=== PATIENT | male | born 1945 | race Caucasian/White ===

== ENCOUNTER 2023-05-15 15:36 | Emergency (ER) | payer OTHER, SELFPAY ==
[2023-05-15] VITALS (15 sets, daily range): BP systolic 174–219; BP diastolic 88–149; PULSE 58–124; RESP 12–28; TEMP 36.4–36.5; O2SAT 96–99; BMI 30.1
--- NOTE | 2023-05-15 16:12 | DI.RAD.S_ITS ---
PROCEDURE: XR CHEST 1V INDICATIONS: suspected sepsis TECHNIQUE: One view of the chest was acquired. COMPARISON: None. FINDINGS: Surgical changes and devices: None. Lungs and pleura: No consolidation. 1.3 cm nodularity projecting over the left middle lung zone. No pleural effusions or pneumothorax. Mediastinum: Mediastinal contours appear normal. Heart size is normal. Bones and chest wall: No suspicious bony lesions. Overlying soft tissues appear unremarkable. IMPRESSION: No acute cardiopulmonary process. 1.3 cm nodularity projecting over the left middle lung zone. Recommend nonurgent confirmation with CT to exclude malignancy. Dictated by: Delano Langston M.D. on 05/15/2023 at 16:53 Approved by: Delano Langston M.D. on 05/15/2023 at 16:53
--- NOTE | 2023-05-15 16:19 | ED.ABDPAIN ---
HPI - Abdominal Pain General Chief Complaint: Fever Stated Complaint: Poss heart troubles??? Time Seen by Provider: 05/15/23 16:18 Source: patient and family Mode of arrival: Wheelchair Related Data Allergies Allergy/AdvReac Type Severity Reaction Status Date / Time No Known Drug Allergies Allergy Verified 05/15/23 16:17 Patient History Social History Smoking Status: Never smoker Smoking Status: Never smoker alcohol intake frequency: other Substance Use Type: marijuana Exam Initial Vital Signs Initial Vital Signs: Vital Signs Temperature 97.5 F L 05/15/23 16:14 Pulse Rate 58 L 05/15/23 16:14 Respiratory Rate 17 05/15/23 16:14 Blood Pressure 214/99 H 05/15/23 16:14 Pulse Oximetry 99 05/15/23 16:14 Oxygen Delivery Method Room Air 05/15/23 16:14 Course Orders Ordered: ED Orders 05/15/23 16:12 XR chest 1V Stat Blood Culture Stat Complete Blood Count AUTO DIFF Stat Comprehensive Metabolic Panel Stat Lactate (Lactic Acid) Stat Lipase Stat PTT Partial Thromboplastin Haroldo Stat Procalcitonin Stat Prothrombin Time INR Stat EKG-12 Lead Stat RT Consult Eval and Treat NOW 05/15/23 16:13 Lipase Stat Respiratory Panel (Film Array) Stat Sodium Chloride (Normal Saline 0.9%) 1,000 mls @ 1,000 mls/hr IV BOLUS ONE Stop: 05/15/23 17:11 Ondansetron HCl (Ondansetron 4 Mg/2 Ml Inj) 4 mg IV NOW PRN PRN Reason: Nausea And Vomiting Ondansetron HCl (Ondansetron 4 Mg Odt) 4 mg SL NOW PRN PRN Reason: Nausea And Vomiting Vital Signs Vital signs: Vital Signs - 8 hr 05/15/23 16:14 Temperature 97.5 F L Pulse Rate 58 L Respiratory Rate 17 Blood Pressure 214/99 H Pulse Oximetry 99 Oxygen Delivery Method Room Air
[2023-05-15] MEDS: ONDANSETRON 4 MG/2 ML INJ IV (17:20)
[2023-05-15] MEDS: SODIUM CHLORIDE 0.9% 1,000 ML 1000 ML IV (17:20)
[2023-05-15 18:23] LABS: Add Manual Diff / Slide Review NO; Basophils Absolute Auto 0 /uL (0-100); Basophils Percent Auto 0.4 % (0-2); Eosinophils Absolute Auto 0 /uL (0-450); Eosinophils Percent Auto 0.2 % (2-4); Hematocrit 45.1 % (41-53); Hemoglobin 15.5 g/dL (13.5-17.5); Lymphocytes Absolute Auto 500 /uL (1100-4500); Lymphocytes Percent Auto 10.5 % (25-40); Mean Corpuscular HGB Conc 34.4 % (30-36); Mean Corpuscular Hemoglobin 31.6 PG (26-34); Mean Corpuscular Volume 91.8 fL (80-100); Monocytes Absolute Auto 300 /uL (0-900); Monocytes Percent Auto 6.1 % (3-14); Neutrophils Absolute Auto 4000 /uL (1500-7000); Neutrophils Percent Auto 82.8 % (50-75); Platelet Count 251 X10^3/uL (150-400); Red Blood Cell Count 4.91 X10^6/uL (4.5-5.9); Red Cell Distribution Width 14.1 % (11.6-14.8); White Blood Cell Count 4.8 X10^3/uL (4.5-11.0)
[2023-05-15 18:26] LABS: Prothrombin Time 11.9 SECONDS (10.1-12.7)
[2023-05-15 18:28] LABS: PTT Partial Thromboplastin Tim 32 SECONDS (26-36)
[2023-05-15 18:33] LABS: Lactate (Lactic Acid) 1.4 mmol/L (0.7-2.1)
[2023-05-15 18:34] LABS: Albumin 4.4 g/dL (3.5-5.0); Albumin Globulin Ratio 1.4 (1.0-2.8); Aspartate Aminotransferase 31 IU/L (17-59); BUN Creatinine Ratio 13.5 (6-22); Bilirubin Total 0.8 mg/dL (0.2-1.3); Blood Urea Nitrogen 18 mg/dL (9-20); Calcium 9.6 mg/dL (8.4-10.2); Carbon Dioxide 28 mmol/L (22-32); Chloride 101 mmol/L (98-107); Estimated Glomerular Filt Rate 55 mL/min (>60); Globulin 3.1 g/dL (1.7-4.1); Lipase 169 U/L (23-300); Sodium 138 mmol/L (137-145); Total Protein 7.5 g/dL (6.3-8.2)
--- NOTE | 2023-05-15 18:42 | PC.NURSE ---
reports he did not check his temp. felt like he had a fever.
[2023-05-15 18:43] LABS: Alanine Aminotransferase 22 IU/L (<50); Alkaline Phosphatase 87 U/L (38-126); Glucose 131 mg/dL (80-110); HEMOLYSIS < 15 (0-50)
[2023-05-15 18:50] LABS: Procalcitonin 0.07 ng/mL (<0.5)
[2023-05-15 18:52] LABS: Adenovirus Not Detected (Not Detect); B. parapertussis Not Detected (Not Detecte); Bordetella pertussis Not Detected (Not Detecte); Chlamydophila pneumoniae Not Detected (Not Detect); Coronavirus 229E Not Detected (Not Detect); Coronavirus HKU1 Not Detected (Not Detect); Coronavirus NL 63 Not Detected (Not Detect); Coronavirus OC43 Not Detected (Not Detect); Human Metapneumovirus Not Detected (Not Detect); Human Rhinovirus/Enterovirus Not Detected (Not Detect); Influenza A Not Detected (Not Detect); Influenza B Not Detected (Not Detect); Mycoplasma pneumoniae Not Detected (Not Detect); Parainfluenza Virus 1 Not Detected (Not Detect); Parainfluenza Virus 2 Not Detected (Not Detect); Parainfluenza Virus 3 Not Detected (Not Detect); Parainfluenza Virus 4 Not Detected (Not Detect); Respiratory Syncytial Virus Not Detected (Not Detect); SARS- CoV-2 Not Detected (Not Detecte)
--- NOTE | 2023-05-15 19:17 | ED.FEVER ---
HPI - Fever General Chief Complaint: Fever Stated Complaint: Poss heart troubles??? Time Seen by Provider: 05/15/23 16:18 Source: patient and family Mode of arrival: Wheelchair Limitations: no limitations History of Present Illness HPI Narrative: This is a 77-year-old male History of COPD, coronary artery disease, chronic kidney disease patient states prior GFR was 45, autoimmune liver disease, prostate cancer and spinal stenosis who presents with complaint of nausea vomiting and abdominal pain for the past 3 days. Patient states pain has been band across his upper abdomen that has been constant he states vomiting makes it worse but otherwise nothing seems to make it better or worse. He states it does not radiate. He had fevers and sweats but did not document with a thermometer. He states he was vomiting throughout the night just bought prompt him to finally come. He had diarrhea intermittently but had a solid stool at 10:00 a.m. this morning. He denies any bright red blood or melena. No urgency he is had frequency but states that is his baseline, no dysuria. No chest pain, no shortness of breath, no cold cough or congestion. He states he does have a new rash on his but which looks sort of like psoriasis. He does have multiple autoimmune diseases including autoimmune skin disease. patient has had prior laminectomy 2 years ago, renal artery bypass 3 years ago, left CEA, prior cardiac stents, right kidney stent and stent in his brain. No known drug allergies. Former tobacco user, no alcohol, occasional THC gummies, no illicit. He sees Dr. Bender in [facility]. He is currently visiting the area and was staying on [facility]. Related Data Home Medications Medication Instructions Recorded Confirmed amlodipine 10 mg tablet 10 mg PO DAILY 05/15/23 05/15/23 atorvastatin 20 mg tablet 20 mg PO DAILY 05/15/23 05/15/23 clonidine HCl 0.2 mg tablet 0.2 mg PO ONCE PM 05/15/23 05/15/23 duloxetine 60 mg capsule,delayed 60 mg PO DAILY 05/15/23 05/15/23 release folic acid 1 mg tablet 1 mg PO DAILY 05/15/23 05/15/23 gabapentin 100 mg capsule 300 mg PO ONCE PM 05/15/23 05/15/23 labetalol 100 mg tablet 100 mg PO BID 05/15/23 05/15/23 methotrexate sodium 2.5 mg tablet 12.5 mg PO WEEKLY 05/15/23 05/15/23 potassium chloride 20 mEq 20 meq PO BID 05/15/23 05/15/23 tablet,extended release(part/cryst) prednisone 5 mg tablet 5 mg PO DAILY 05/15/23 05/15/23 spironolactone 25 mg tablet 25 mg PO DAILY 05/15/23 05/15/23 tamsulosin 0.4 mg capsule 0.4 mg PO DAILY 05/15/23 05/15/23 ursodiol 300 mg capsule 300 mg PO 3XD 05/15/23 05/15/23 Allergies Allergy/AdvReac Type Severity Reaction Status Date / Time No Known Drug Allergies Allergy Verified 05/15/23 16:17 Review of Systems Review of Systems ROS Unobtainable: All systems reviewed & are unremarkable except as noted in HPI and below Patient History Social History Smoking Status: Never smoker Smoking Status: Never smoker alcohol intake frequency: other Substance Use Type: marijuana Exam Narrative Exam Narrative: GENERAL: Alert and oriented x three, well-appearing male in mild distress. HEENT: Head normocephalic, atraumatic, EOMI, pupils reactive, face symmetric, moist mucous membranes NECK: Supple, full range of motion CARDIOVASCULAR: Regular rate and rhythm without murmurs, rubs or gallops. RESPIRATORY: Breath sounds equal bilaterally, no wheezes rales or rhonchi. ABDOMEN: Soft, Serum mild left upper quadrant tenderness. Nondistended. Normoactive bowel sounds all 4 quadrants. No guarding or rebound, rigidity, no mass : No CVA tenderness EXTREMITIES: Normal range of motion, no clubbing or edema. Neurovascularly intact NEUROLOGICAL: Cranial nerves II through XII grossly intact. Moving all extremities SKIN: Warm, dry, no petechiae, no Lesions, patient has a silver scaled large plaque with irregular erythematous edges that is slightly raised that is approximately 9 cm in diameter On the right buttock with no other lesions appreciated. Initial Vital Signs Initial Vital Signs: Vital Signs Temperature 97.5 F L 05/15/23 16:14 Pulse Rate 58 L 05/15/23 16:14 Respiratory Rate 17 05/15/23 16:14 Blood Pressure 214/99 H 05/15/23 16:14 Pulse Oximetry 99 05/15/23 16:14 Oxygen Delivery Method Room Air 05/15/23 16:14 Course Orders Ordered: Discontinued Medications Hydrocodone Bitart/Acetaminophen (Hydrocodone/Acet 5/325 Prepack) 1 bottle MISC SEEINSTR ONE Stop: 05/15/23 21:18 Last Admin: 05/15/23 21:39 Dose: 1 bottle Documented By: MARY Sodium Chloride (Normal Saline 0.9%) 1,000 mls @ 1,000 mls/hr IV BOLUS ONE Stop: 05/15/23 17:11 Last Infusion: 05/15/23 18:25 Dose: 0 mls/hr Documented By: Admin: 05/15/23 17:20 Dose: 1,000 mls/hr Documented By: ANY Morphine Sulfate (Morphine 4 Mg/Ml Inj) 4 mg IV NOW ONE Stop: 05/15/23 19:28 Last Admin: 05/15/23 19:41 Dose: 4 mg Documented By: MARY Ondansetron HCl (Ondansetron 4 Mg/2 Ml Inj) 4 mg IV NOW PRN PRN Reason: Nausea And Vomiting Last Admin: 05/15/23 17:20 Dose: 4 mg Documented By: ANY Ondansetron HCl (Ondansetron 4 Mg Odt) 4 mg SL NOW PRN PRN Reason: Nausea And Vomiting Last Admin: 05/15/23 19:42 Dose: 4 mg Documented By: MARY Ondansetron HCl (Ondansetron 4 Mg Odt Prepack) 1 bottle MISC SEEINSTR ONE Stop: 05/15/23 21:18 Last Admin: 05/15/23 21:39 Dose: 1 bottle Documented By: MARY Vital Signs Vital signs: Vital Signs - 8 hr 05/15/23 16:14 05/15/23 17:24 05/15/23 17:25 Temperature 97.5 F L Pulse Rate 58 L 70 Respiratory Rate 17 20 Blood Pressure 214/99 H 219/103 H Pulse Oximetry 99 98 Oxygen Delivery Method Room Air 05/15/23 17:25 05/15/23 17:30 05/15/23 17:30 Temperature Pulse Rate 65 58 L Respiratory Rate 12 20 Blood Pressure 215/105 H Pulse Oximetry 99 99 Oxygen Delivery Method 05/15/23 18:00 05/15/23 18:01 07/28/23 18:01 Temperature Pulse Rate 62 68 Respiratory Rate 20 23 Blood Pressure 201/149 H Pulse Oximetry 98 98 Oxygen Delivery Method Room Air 05/15/23 18:30 05/15/23 18:30 05/15/23 19:00 Temperature Pulse Rate 94 H Respiratory Rate 20 Blood Pressure 187/89 H 199/98 H Pulse Oximetry 97 Oxygen Delivery Method 05/15/23 19:00 Temperature Pulse Rate 70 Respiratory Rate 20 Blood Pressure Pulse Oximetry 97 Oxygen Delivery Method MDM - Fever Lab Data 05/15/23 16:12 05/15/23 16:12 Labs: Lab Results 05/15/23 05/15/23 05/15/23 Range/Units 16:12 16:12 16:12 WBC 4.8 (4.5-11.0) X10^3/uL RBC 4.91 (4.5-5.9) X10^6/uL Hgb 15.5 (13.5-17.5) g/dL Hct 45.1 (41-53) % MCV 91.8 (80-100) fL MCH 31.6 (26-34) PG MCHC 34.4 (30-36) % RDW 14.1 (11.6-14.8) % Plt Count 251 (150-400) X10^3/uL Neut % (Auto) 82.8 H (50-75) % Lymph % (Auto) 10.5 L (25-40) % Benson % (Auto) 6.1 (3-14) % Eos % (Auto) 0.2 L (2-4) % Baso % (Auto) 0.4 (0-2) % Neut # (Auto) 4000 (2083-8394) /uL Lymph # (Auto) 500 L (9116-6385) /uL Benson # (Auto) 300 (0-900) /uL Eos # (Auto) 0 (0-450) /uL Baso # (Auto) 0 (0-100) /uL PT 11.9 (10.1-12.7) SECONDS INR 1.0 (0.9-1.3) APTT 32 (26-36) SECONDS Sodium 138 (137-145) mmol/L Potassium 4.0 (3.4-5.1) mmol/L Chloride 101 (98-107) mmol/L Carbon Dioxide 28 (22-32) mmol/L BUN 18 (9-20) mg/dL Creatinine 1.33 H (0.66-1.25) mg/dL Estimated GFR 55 L (>60) mL/min BUN/Creatinine Ratio 13.5 (6-22) Glucose 131 H (80-110) mg/dL Lactate (0.7-2.1) mmol/L Calcium 9.6 (8.4-10.2) mg/dL Total Bilirubin 0.8 (0.2-1.3) mg/dL AST 31 (17-59) IU/L ALT 22 (<50) IU/L Alkaline Phosphatase 87 (38-126) U/L Total Protein 7.5 (6.3-8.2) g/dL Albumin 4.4 (3.5-5.0) g/dL Globulin 3.1 (1.7-4.1) g/dL Albumin/Globulin Ratio 1.4 (1.0-2.8) Lipase 169 (23-300) U/L Procalcitonin 0.07 (<0.5) ng/mL Urine RBC (0-5/HPF) Urine WBC (0-5/HPF) Ur Squamous Epith Cells (0-5/HPF) Urine Bacteria (None) Ur Culture Indicated? Chlamy pneumoniae PCR (Not Detect) Adenovirus (PCR) (Not Detect) B. pertussis DNA (PCR) (Not Detecte) B.parapertussis DNA PCR (Not Detecte) Coronavirus OC43 (PCR) (Not Detect) Coronavirus HKU1 (PCR) (Not Detect) Coronavirus 229E (PCR) (Not Detect) SARS-CoV-2 (PCR) (Not Detecte) Coronavirus NL63 (PCR) (Not Detect) Human Metapneumovir PCR (Not Detect) Influenza Type A (PCR) (Not Detect) Influenza Type B (PCR) (Not Detect) M. pneumoniae (PCR) (Not Detect) Parainfluenza 1 (PCR) (Not Detect) Parainfluenza 2 (PCR) (Not Detect) Parainfluenza 3 (PCR) (Not Detect) Parainfluenza 4 (PCR) (Not Detect) RSV (PCR) (Not Detect) Entero/Rhino (PCR) (Not Detect) 05/15/23 05/15/23 05/15/23 Range/Units 16:12 16:30 19:30 WBC (4.5-11.0) X10^3/uL RBC (4.5-5.9) X10^6/uL Hgb (13.5-17.5) g/dL Hct (41-53) % MCV (80-100) fL MCH (26-34) PG MCHC (30-36) % RDW (11.6-14.8) % Plt Count (150-400) X10^3/uL Neut % (Auto) (50-75) % Lymph % (Auto) (25-40) % Benson % (Auto) (3-14) % Eos % (Auto) (2-4) % Baso % (Auto) (0-2) % Neut # (Auto) (3287-3047) /uL Lymph # (Auto) (7457-6794) /uL Benson # (Auto) (0-900) /uL Eos # (Auto) (0-450) /uL Baso # (Auto) (0-100) /uL PT (10.1-12.7) SECONDS INR (0.9-1.3) APTT (26-36) SECONDS Sodium (137-145) mmol/L Potassium (3.4-5.1) mmol/L Chloride (98-107) mmol/L Carbon Dioxide (22-32) mmol/L BUN (9-20) mg/dL Creatinine (0.66-1.25) mg/dL Estimated GFR (>60) mL/min BUN/Creatinine Ratio (6-22) Glucose (80-110) mg/dL Lactate 1.4 (0.7-2.1) mmol/L Calcium (8.4-10.2) mg/dL Total Bilirubin (0.2-1.3) mg/dL AST (17-59) IU/L ALT (<50) IU/L Alkaline Phosphatase (38-126) U/L Total Protein (6.3-8.2) g/dL Albumin (3.5-5.0) g/dL Globulin (1.7-4.1) g/dL Albumin/Globulin Ratio (1.0-2.8) Lipase (23-300) U/L Procalcitonin (<0.5) ng/mL Urine RBC None seen (0-5/HPF) Urine WBC None seen (0-5/HPF) Ur Squamous Epith Cells None seen (0-5/HPF) Urine Bacteria None seen (None) Ur Culture Indicated? Cult not indicated Chlamy pneumoniae PCR Not detected (Not Detect) Adenovirus (PCR) Not detected (Not Detect) B. pertussis DNA (PCR) Not detected (Not Detecte) B.parapertussis DNA PCR Not detected (Not Detecte) Coronavirus OC43 (PCR) Not detected (Not Detect) Coronavirus HKU1 (PCR) Not detected (Not Detect) Coronavirus 229E (PCR) Not detected (Not Detect) SARS-CoV-2 (PCR) Not detected (Not Detecte) Coronavirus NL63 (PCR) Not detected (Not Detect) Human Metapneumovir PCR Not detected (Not Detect) Influenza Type A (PCR) Not detected (Not Detect) Influenza Type B (PCR) Not detected (Not Detect) M. pneumoniae (PCR) Not detected (Not Detect) Parainfluenza 1 (PCR) Not detected (Not Detect) Parainfluenza 2 (PCR) Not detected (Not Detect) Parainfluenza 3 (PCR) Not detected (Not Detect) Parainfluenza 4 (PCR) Not detected (Not Detect) RSV (PCR) Not detected (Not Detect) Entero/Rhino (PCR) Not detected (Not Detect) Urine Dip Bedside Urine Glucose Negative Bedside Urine Bilirubin - Negative Bedside Urine Ketone +/- 5 Urine Specific [place] 1.015 Bedside Urine Occult Blood + Bedside Urine pH 7.0 Bedside Urine Protein +/- 15 Bedside Urine Urobilinogen - Negative Bedside Urine Nitrite - Negative Bedside Urine Leukocytes - Negative Esterase Imaging Data CT scan - abdomen/pelvis: Radiologist's Impression: Close Abdomen/Pelvis CT (Signed) Oswald Hernandez - 05/15/23 Chest X-Ray (Signed) Delano Langston - 05/15/23 Launch?[address] [address] [address] Scan Report Signed Patient: Rodríguez Hartman MR#: [id number] : 1945 Acct:[id number] Age/Sex: 77 / M Date of Service: 05/15/23 Loc: ED Accession Number: [id number] ?? Procedure: CT abdomen pelvis w con Ordering Provider: Mank,Faith C D.O. PROCEDURE:? CT ABDOMEN PELVIS W CON ? INDICATIONS:? abd pain, upper, v x 3 days, hx autoimmune liver disease,ckd ? TECHNIQUE:? After the administration of oral and IV contrast, axial sections were acquired from the lung bases to the pubic symphysis.? Coronal and sagittal reformats were performed.? For radiation dose reduction, the following was used:? automated exposure control, adjustment of mA and/or kV according to patient size. ? COMPARISON:? [facility], CR, XR CHEST 1V, 05/15/2023, 16:30. ? FINDINGS:? Image quality:? Excellent.? ? Lung bases:? Unremarkable.? ? A small hiatal hernia is incidentally noted.? Heart:? No significant findings. ? ? ABDOMEN: Liver:? Unremarkable.? ? Gallbladder:? Unremarkable.? ? Biliary ducts:? Unremarkable.? ? Pancreas:? Unremarkable.? ? Spleen:? Unremarkable.? ? Adrenal Glands:? Unremarkable.? ? Kidneys and Ureters:? The left kidney is atrophic.? Simple appearing renal cysts can be seen superiorly.? The right kidney demonstrates normal size.? No hydronephrosis is seen on either side. ? Stomach and Bowel:? Stomach, small bowel loops, and colon are unremarkable.? Colonic diverticulosis is seen, without findings of active diverticulitis. Peritoneum:? No abnormal intraperitoneal fluid.? No free air.? ? Ventral Wall: ? No hernia.? Abdominal Nodes:? No retroperitoneal or mesenteric adenopathy by size criteria.? Vessels:? Aorta and inferior vena cava are normal in size.? There is a patent right renal artery stent seen proximally.? Postoperative clips can be seen adjacent to the left proximal renal artery. Atherosclerotic calcification is noted.? ? PELVIS: Pelvic Organs:? The prostate is enlarged, measuring 6.4 cm craniocaudal. Bladder:? Unremarkable.? ? Pelvic Nodes: No enlarged lymph nodes.? Miscellaneous:? There is a fat containing left inguinal hernia.? Laparoscopic anchors can be seen on both sides, consistent bilateral prior inguinal hernia repair. ? Bones:? Focal lower lumbar spine degenerative change is seen.? Postoperative change of the lower lumbar spine can be seen, with removal of portions of the posterior elements.? Milder degenerative changes are seen elsewhere.? Mild dextroconvex scoliotic curvature is seen.? ? ? IMPRESSION:? ? A cause of acute abdominal pain is not seen. ? Atrophic left kidney. ? Postoperative change can be seen adjacent to the origin of the left renal artery.? There is a patent right renal artery stent seen proximally. ? Additional findings:? Small hiatal hernia Focal lower lumbar spine degenerative change Lumbar spine postoperative change Diverticulosis, without active diverticulitis Enlarged prostate Prior bilateral inguinal hernia repair Fat containing left inguinal hernia ? Dictated by: Oswald Hernandez M.D. on 05/15/2023 at 19:39 ? ? Approved by: Oswald Hernandez M.D. on 05/15/2023 at 19:42?? ECG Data Attestation: I personally reviewed and interpreted this ECG as follows: Prior ECG tracings: not available for review Interpretation: Sinus bradycardia, right bundle-branch block, rate of 52, WI 194, QRS of 124 QTC of 474. No priors for comparison. MDM Narrative Medical decision making narrative: This is a 77-year-old male with chronic kidney disease, autoimmune liver disease, coronary artery disease with peripheral vascular disease as well who presents with persistent vomiting and upper abdominal pain for the past 3 days. Patient's labs overall show creatinine of 1.33 he notes his GFR is typically 45, electrolytes, LFTs, procalcitonin, lactate are all negative, CBC does not show any leukocytosis, normal hemoglobin, coags are normal. Respiratory panel is negative. Urine did show some hematuria micro was sent and is negative. based on patient's symptoms and his chronic medical issues CT abdomen pelvis was obtained. Did not show any acute changes, patient has atrophic kidney which he was aware of adrenal nodule results were all reviewed. Patient has not had any additional vomiting here in the department. Discussed with patient plan for discharge with Zofran and short course of prepack of pain medication with return precautions. Discharge Plan Departure Patient Disposition: Home Clinical Impression: Atrophy of left kidney, Vomiting Instructions: DI for Vomiting -- Adult Activity Restrictions/Additional Instructions: Your workup today does not show any obvious new changes with your labs or imaging. Your creatinine is 1.33 with a GFR of 55 today You may take Zofran 1 tablet every 6 hours as needed for nausea. You may take 1 tablet of Elfrida every 6 hours as needed for pain. This medication can make you sleepy do not drive, perform hazardous activities or make any major decisions while taking it. This medication will make you constipated please take a stool softener once to twice daily until stools are soft and regular. Please return for persistent fevers, new chest pain or shortness of breath, persistent vomiting, black or bloody stools, worsening abdominal pain or other new or concerning changes. Prescriptions: No Action atorvastatin 20 mg tablet 20 mg PO DAILY prednisone 5 mg tablet 5 mg PO DAILY spironolactone 25 mg tablet 25 mg PO DAILY clonidine HCl 0.2 mg tablet 0.2 mg PO ONCE PM potassium chloride 20 mEq tablet,ER particles/crystals 20 meq PO BID methotrexate sodium 2.5 mg tablet 12.5 mg PO WEEKLY tamsulosin 0.4 mg capsule 0.4 mg PO DAILY amlodipine 10 mg tablet 10 mg PO DAILY ursodiol 300 mg capsule 300 mg PO 3XD folic acid 1 mg tablet 1 mg PO DAILY gabapentin 100 mg capsule 300 mg PO ONCE PM labetalol 100 mg tablet 100 mg PO BID duloxetine 60 mg capsule,delayed release(DR/EC) 60 mg PO DAILY Stand Alone Forms: Patient Portal/API
--- NOTE | 2023-05-15 19:27 | DI.CT.S_ITS ---
PROCEDURE: CT ABDOMEN PELVIS W CON INDICATIONS: abd pain, upper, v x 3 days, hx autoimmune liver disease,ckd TECHNIQUE: After the administration of oral and IV contrast, axial sections were acquired from the lung bases to the pubic symphysis. Coronal and sagittal reformats were performed. For radiation dose reduction, the following was used: automated exposure control, adjustment of mA and/or kV according to patient size. COMPARISON: [facility], CR, XR CHEST 1V, 05/15/2023, 16:30. FINDINGS: Image quality: Excellent. Lung bases: Unremarkable. A small hiatal hernia is incidentally noted. Heart: No significant findings. ABDOMEN: Liver: Unremarkable. Gallbladder: Unremarkable. Biliary ducts: Unremarkable. Pancreas: Unremarkable. Spleen: Unremarkable. Adrenal Glands: Unremarkable. Kidneys and Ureters: The left kidney is atrophic. Simple appearing renal cysts can be seen superiorly. The right kidney demonstrates normal size. No hydronephrosis is seen on either side. Stomach and Bowel: Stomach, small bowel loops, and colon are unremarkable. Colonic diverticulosis is seen, without findings of active diverticulitis. Peritoneum: No abnormal intraperitoneal fluid. No free air. Ventral Wall: No hernia. Abdominal Nodes: No retroperitoneal or mesenteric adenopathy by size criteria. Vessels: Aorta and inferior vena cava are normal in size. There is a patent right renal artery stent seen proximally. Postoperative clips can be seen adjacent to the left proximal renal artery. Atherosclerotic calcification is noted. PELVIS: Pelvic Organs: The prostate is enlarged, measuring 6.4 cm craniocaudal. Bladder: Unremarkable. Pelvic Nodes: No enlarged lymph nodes. Miscellaneous: There is a fat containing left inguinal hernia. Laparoscopic anchors can be seen on both sides, consistent bilateral prior inguinal hernia repair. Bones: Focal lower lumbar spine degenerative change is seen. Postoperative change of the lower lumbar spine can be seen, with removal of portions of the posterior elements. Milder degenerative changes are seen elsewhere. Mild dextroconvex scoliotic curvature is seen. IMPRESSION: A cause of acute abdominal pain is not seen. Atrophic left kidney. Postoperative change can be seen adjacent to the origin of the left renal artery. There is a patent right renal artery stent seen proximally. Additional findings: Small hiatal hernia Focal lower lumbar spine degenerative change Lumbar spine postoperative change Diverticulosis, without active diverticulitis Enlarged prostate Prior bilateral inguinal hernia repair Fat containing left inguinal hernia Dictated by: Oswald Hernandez M.D. on 05/15/2023 at 19:39 Approved by: Oswald Hernandez M.D. on 05/15/2023 at 19:42
[2023-05-15] MEDS: MORPHINE 4 MG/ML INJ IV (19:41)
[2023-05-15] MEDS: ONDANSETRON 4 MG ODT SL (19:42)
[2023-05-15 20:00] LABS: Bacteria Urine None Seen; Culture Indicated Urine Cult Not Indicated; RBC Urine None Seen (0-5/HPF); Squamous Epithelial Cell Urine None Seen (0-5/HPF); WBC Urine None Seen (0-5/HPF)
[2023-05-15] MEDS: ONDANSETRON 4 MG ODT PREPACK 1 BOTTLE MISC (21:39)
[2023-05-15] MEDS: HYDROCODONE/ACET 5/325 PREPACK 1 BOTTLE MISC (21:39)
== END 2023-05-15 21:42 | disposition home or self-care (01) ==
PROVIDERS: Emergency Medicine; Emergency Provider Emergency Medicine
DX: N26.1 Atrophy of kidney (terminal) (principal); R11.2 Nausea with vomiting, unspecified; R00.1 Bradycardia, unspecified; I45.10 Unspecified right bundle-branch block
CPT/HCPCS: 36415; 71045; 74177; 80053; 81003; 81015; 83605; 83690; 84145; 85025; 85610; 85730; 87040; 87633; 93005; 96374; 96375; 99284; J2270; J2405; Q9967